=== PATIENT | female | born 1955 | race Caucasian/White ===

== ENCOUNTER 2023-09-13 09:50 | Outpatient (CLI) | payer MEDICARE, SELFPAY ==
--- NOTE | ~2023-09-13 | MR_ITS ---
EXAMINATION: MR knee LT wo con DATE: 09/13/2023 10:30 INDICATION: Internal derangement of the left knee with left knee pain TECHNIQUE: Magnetic resonance imaging (MRI) of the left knee was performed without intravenous contra st. Sequences included coronal PD-weighted FSE, coronal PD-weighted FS FSE, sagittal T2-weighted FSE , sagittal PD-weighted FS FSE and axial PD weighted fat saturated FSE. COMPARISON: None. FINDINGS: Medial compartment: Complex tear of the posterior body and posterior horn of the medial meniscus. Partial-thickness chond ral ulceration and deep fissuring at the anterior to central weightbearing medial femoral condyle wit h small region of underlying subarticular edema-like signal change. Mild partial-thickness cartilage loss along the medial tibial plateau with generally smooth chondral surface. There is a small deep ch ondral fissure site posterior medial to the center of the medial tibial plateau. Lateral compartment: Longitudinal horizontal tear extending to the free edge of the body of the medial meniscus with small radial tear versus fraying along the inner free edge of the posterior horn. Small region of deep cho ndral fissuring without degenerative subchondral changes anterior to central weightbearing medial fem oral condyle. There is partial thickness chondral ulceration with tiny focus of underlying subarticul ar edema-like signal change along the lateral margin of the anterior weightbearing lateral femoral co ndyle. Deep chondral ulceration involving greater than 50% the cartilage thickness but without degene rative subchondral changes at the central aspect of the lateral tibial plateau. Patellofemoral compartment: Extensive full and near full-thickness chondral ulceration involving majority the patellar apical rid ge and lateral patellar facet and the lateral two thirds of the lateral trochlea with suggestion of s ome early remodeling of the articular cortex and scattered small foci of subarticular edema-like sign al change. And smaller region of deep chondral ulceration at the central aspect of the medial trochle a with prominent central subchondral osteophyte which appears to project beyond the surrounding artic ular cartilage. Ligaments and tendons: Anterior and posterior cruciate ligaments are normal. The medial collateral ligament and fibular mirlande ateral ligament complex are normal. Small enthesophytes at the patellar insertion of the patellar ten don. The extensor mechanism is otherwise normal. The visualized medial and lateral hamstring tendons as well as the iliotibial band are normal. Fluid: Moderate-sized joint effusion with mild scattered synovitis. No loose osteochondral bodies identified . Moderate sized Waddell's cyst measuring 5.4 x 3.0 x 1.5 cm. Osseous/other: Moderate size marginal osteophytes in all 3 compartments. No fracture or pathologic marrow replacing process. IMPRESSION: 1. Medial and lateral meniscal tears. 2. Tricompartmental osteoarthritis, severe with extensive high-grade chondral malacia in the patellof emoral compartment and mild with additional high-grade chondral malacia in the medial and lateral com partments. 3. Moderate-sized knee joint effusion and moderate-sized Waddell's cyst. Reviewed, dictated and finalized at location A. IMPRESSION: 1. Medial and lateral meniscal tears. 2. Tricompartmental osteoarthritis, severe with extensive high-grade chondral m alacia in the patellofemoral compartment and mild with additional high-grade ch ondral malacia in the medial and lateral compartments. 3. Moderate-sized knee joint effusion and moderate-sized Waddell's cyst.
== END 2023-09-13 09:51 ==
LOC: GOSHIMG 09:53
PROVIDERS: PCP Family Medicine Sports Medicine; Visit Provider Family Medicine Sports Medicine
DX: M17.12 Unilateral primary osteoarthritis, left knee (principal); M25.462 Effusion, left knee; S83.242A Other tear of medial meniscus, current injury, left knee, initial encounter; S83.282A Other tear of lateral meniscus, current injury, left knee, initial encounter; X58.XXXA Exposure to other specified factors, initial encounter
CPT/HCPCS: 73721